=== PATIENT | male | born 1955 | race Caucasian/White ===

== ENCOUNTER 2022-06-06 02:16 | Emergency (ER) | payer BC, OTHER ==
[2022-06-06] MEDS ORDERED: Oxymetazoline 0.05% Nasal Spray 30 ML Bottle NAS ONE (02:38)
[2022-06-06] MEDS ORDERED: Acetaminophen 325 MG Tab PO ONE (03:42)
== END 2022-06-06 04:00 | disposition home or self-care (01) ==
LOC: JD.ED 02:16
DX: R04.0 Epistaxis (principal); I10 Essential (primary) hypertension
CPT/HCPCS: 99283; A9270; 30901; 99282

== ENCOUNTER 2022-06-06 17:57 | Emergency (ER) | payer BC ==
[2022-06-06] MEDS ORDERED: HYDROmorphone 1 MG/ML Syringe IM ONE (19:35)
[2022-06-06] MEDS ORDERED: hydrALAZINE 10 MG Tab PO ONE (20:29)
[2022-06-06] MEDS ORDERED: cloNIDine 0.1 MG Tab PO ONE (21:32)
== END 2022-06-06 22:25 | disposition home or self-care (01) ==
LOC: JD.ED 17:57
DX: R04.0 Epistaxis (principal); I10 Essential (primary) hypertension
CPT/HCPCS: 96372; 99283; A9270; J1170; C9046

== ENCOUNTER 2022-06-08 04:20 | Emergency (ER) | payer BC | END 2022-06-08 05:30 | disposition home or self-care (01) | LOC: JD.ED 04:20 | DX: R04.0 Epistaxis (principal); I10 Essential (primary) hypertension | CPT/HCPCS: 99283 ==

== ENCOUNTER 2022-09-26 06:44 | Emergency (ER) | payer BC ==
[2022-09-26] MEDS ORDERED: Oxymetazoline 0.05% Nasal Spray 30 ML Bottle NAS ONE (07:27)
[2022-09-26] MEDS ORDERED: Lidocaine 1% with EPINEPHrine 1:100,000 10 ML MDV INJECT ONE (07:28)
== END 2022-09-26 10:45 | disposition home or self-care (01) ==
LOC: JD.ED 06:44
DX: R04.0 Epistaxis (principal); I10 Essential (primary) hypertension
CPT/HCPCS: 30903; 99283; A9270; 30901

== ENCOUNTER 2023-08-08 04:29 | Emergency (ER) | payer BC ==
[2023-08-08] MEDS: Adenosine 6 MG/2 ML SDV IVPUSH ONE (04:45)
[2023-08-08 05:00] LABS: BASOPHILS PERCENT AUTO 0.5 % (0.0-1.0); EOSINOPHILS ABSOLUTE AUTO 0.2 K/mm3 (0.0-0.4); EOSINOPHILS PERCENT AUTO 3.4 % (0.0-6.0); HEMOGLOBIN 17.4 gm/dl (14.0-18.0); IMMATURE GRAN ABSOLUTE AUTO 0.01 K/mm3 (0.00-0.05); IMMATURE GRAN PERCENT AUTO 0.2 % (0.0-0.4); LYMPHOCYTES ABSOLUTE AUTO 2.4 K/mm3 (1.0-4.8); LYMPHOCYTES PERCENT AUTO 36.2 % (24.0-44.0); MEAN CORPUSCULAR HGB CONC 32.2 g/dl (32.0-36.0); MEAN CORPUSCULAR VOLUME 90.2 fl (83.0-99.0); MEAN PLATELET VOLUME 10.3 fl (9.4-12.4); MONOCYTES ABSOLUTE AUTO 0.7 K/mm3 (0.0-0.8); MONOCYTES PERCENT AUTO 10.4 % (0.0-8.0); NEUTROPHILS ABSOLUTE AUTO 3.2 K/mm3 (1.8-7.7); NEUTROPHILS PERCENT AUTO 49.3 % (41.0-71.0); PLATELET COUNT,PLT 285 K/mm3 (150-400); RED BLOOD CELL COUNT 5.99 M/mm3 (4.52-5.90); WHITE BLOOD CELL COUNT,WBC 6.55 K/mm3 (3.9-11.3)
[2023-08-08] MEDS: Sodium Chloride 0.9% 1,000 ML IV SCH (05:07)
[2023-08-08] MEDS: Adenosine 12 MG/4 ML SDV ONE (05:10)
[2023-08-08] MEDS: Adenosine 6 MG/2 ML SDV ONE (05:10)
[2023-08-08 05:39] LABS: A/G RATIO 1.1 (1-2); ALBUMIN 3.9 g/dl (3.4-5.0); ANION GAP 10.9 (5-15); BILIRUBIN TOTAL 0.3 mg/dL (0.2-1.0); CALCIUM 9.1 mg/dL (8.5-10.1); CREATININE 1.4 mg/dL (0.7-1.3); EST CRCL DRUG DOSING (CG) 64.58 mL/min; MAGNESIUM 2.1 mg/dL (1.8-2.4); POTASSIUM,K 4.9 mEq/L (3.5-5.1); PROTEIN TOTAL,TP 7.4 g/dl (6.4-8.2); TSH 4.402 uIU/mL (0.358-3.74)
[2023-08-08] MEDS: Sodium Chloride 0.9% 10 ML Syringe FLUSH PRN (05:52)
== END 2023-08-08 06:40 | disposition home or self-care (01) ==
LOC: JD.ED 04:29
DX: I47.10 Supraventricular tachycardia, unspecified (principal); I10 Essential (primary) hypertension; E78.00 Pure hypercholesterolemia, unspecified; Z79.899 Other long term (current) drug therapy
CPT/HCPCS: 36415; 71045; 80053; 83735; 84443; 84484; 85025; 93005; 96361; 96374; 99285; J0153; J3490; J7030; 93010; 99284

== ENCOUNTER 2024-11-16 10:38 | Emergency (ER) | payer BC ==
[2024-11-16 11:00] LABS: BASOPHILS ABSOLUTE AUTO 0.0 K/mm3 (0.0-0.2); BASOPHILS PERCENT AUTO 0.4 % (0.0-1.0); EOSINOPHILS ABSOLUTE AUTO 0.0 K/mm3 (0.0-0.4); EOSINOPHILS PERCENT AUTO 0.5 % (0.0-6.0); IMMATURE GRAN ABSOLUTE AUTO 0.02 K/mm3 (0.00-0.05); IMMATURE GRAN PERCENT AUTO 0.3 % (0.0-0.4); LYMPHOCYTES ABSOLUTE AUTO 2.6 K/mm3 (1.0-4.8); LYMPHOCYTES PERCENT AUTO 35.2 % (24.0-44.0); MEAN PLATELET VOLUME 10.0 fl (9.4-12.4); MONOCYTES ABSOLUTE AUTO 0.6 K/mm3 (0.0-0.8); MONOCYTES PERCENT AUTO 7.7 % (0.0-8.0); NEUTROPHILS ABSOLUTE AUTO 4.2 K/mm3 (1.8-7.7); NEUTROPHILS PERCENT AUTO 55.9 % (41.0-71.0); NRBC ABSOLUTE 0.00 (0.00-0.02); NRBC PERCENT 0.0 % (0.0-0.2); PLATELET COUNT,PLT 261 K/mm3 (150-400); RED BLOOD CELL COUNT 5.66 M/mm3 (4.52-5.90); WHITE BLOOD CELL COUNT,WBC 7.49 K/mm3 (3.9-11.3)
[2024-11-16 11:17] LABS: INR 0.99
[2024-11-16 11:23] LABS: A/G RATIO 1.4 (1-2); ALANINE AMINOTRANSFERASE,ALT 27.0 U/L (16-63); ASPARTATE AMNIOTRANSFERASE,AST 21.0 U/L (15-37); BILIRUBIN TOTAL 0.6 mg/dL (0.2-1.0); BLOOD UREA NITROGEN,BUN 14.0 mg/dL (7-18); CARBON DIOXIDE,CO2 25.0 mEq/L (21-32); CHLORIDE,CL 103.0 mEq/L (98-107); CREATINE KINASE,CK 167.0 U/L (39-308); CREATININE 1.0 mg/dL (0.7-1.3); EST CRCL DRUG DOSING (CG) 91.58 mL/min; ESTIMATED GFR 83.0 mL/min (>60); GLUCOSE RANDOM 160.0 mg/dL (70-99); POTASSIUM,K 3.9 mEq/L (3.5-5.1); PROTEIN TOTAL,TP 7.2 g/dl (6.4-8.2); SODIUM,NA 137.0 mEq/L (136-145); TROPONIN I HIGH SENSITIVITY 18.0 pg/mL (<=76)
[2024-11-16] MEDS: Propranolol 80 MG Cap.ER PO ONE (11:45)
[2024-11-16] MEDS: LORazepam 2 MG/ML SDV IVPUSH STA (11:45)
[2024-11-16] MEDS: Adenosine 12 MG/4 ML SDV ONE (13:30)
== END 2024-11-16 12:30 | disposition home or self-care (01) ==
LOC: JD.ED 10:38
DX: I47.10 Supraventricular tachycardia, unspecified (principal); I10 Essential (primary) hypertension; E78.00 Pure hypercholesterolemia, unspecified; Z79.899 Other long term (current) drug therapy
CPT/HCPCS: 36415; 80053; 82550; 83735; 84484; 85025; 85379; 85610; 93005; 96374; 96375; 99285; A9270; J0153; J2060; J7030; 93010; 99284